=== PATIENT | male | born 2000 | race African-American/Black ===

== ENCOUNTER 2024-05-10 20:10 | Inpatient (IN) | payer MEDICAID ==
[~2024-05-10] VITALS: Ht 188 cm; Wt 78.2 kg
[2024-05-10] MEDS ORDERED: ZOLPIDEM TARTRATE 10 MG TABLET PO PRN (21:00)
[2024-05-10] MEDS ORDERED: HALOPERIDOL 5 MG TABLET PO PRN (21:00)
[2024-05-10 21:35] LABS: GLUCOMETER DEV NAME(LOC) POC.BV; POC SARS-COV2 AG, FIA NEGATIVE (NEGATIVE)
[2024-05-10] MEDS ORDERED: TRAZ-252 PO (22:01)
[2024-05-10] MEDS ORDERED: RISP-32 PO (22:01)
[2024-05-10 22:09] VITALS: BP 125/76; PULSE 98; RESP 18; TEMP 97.6; O2SAT 98
[2024-05-10] MEDS: LORazepam 2 MG TABLET PO PRN (22:28)
[2024-05-10] MEDS ORDERED: MAGNESIUM HYDROXIDE SUSPENSION 30 ML UDCUP PO PRN (22:30)
[2024-05-10] MEDS ORDERED: GuaiFENesin/D-METHORPHAN [SUGAR-FREE] 200-20MG/10 ML SYRUP UDCUP PO PRN (22:30)
[2024-05-10] MEDS ORDERED: ACETAMINOPHEN 325 MG TABLET PO PRN (22:30)
[2024-05-10] MEDS ORDERED: MAG HYDROX/ALUMINUM HYD/SIMETH ES 30 ML SUSPENSION UDCUP PO PRN (22:30)
[2024-05-10] MEDS ORDERED: PROMETHAZINE HCL 25 MG TABLET PO PRN (22:30)
[2024-05-10] MEDS ORDERED: TUBERCULIN, PURIFIED PROTEIN DERIVATIVE 5 TU/0.1 ML SYRINGE ID ONE (22:30)
[2024-05-10] MEDS ORDERED: HydrOXYzine PAMOATE 50 MG CAPSULE PO PRN (22:30)
[2024-05-10] MEDS ORDERED: LOPERAMIDE HCL 2 MG CAPSULE PO PRN (22:30)
[2024-05-11 09:00] VITALS: BP 117/71; PULSE 92; RESP 18; TEMP 97.3; O2SAT 98
[2024-05-11] MEDS ORDERED: CloNIDine HCL 0.1 MG TABLET PO PRN (09:30)
[2024-05-11] MEDS: FLUoxetine HCL 20 MG CAPSULE PO SCH (10:28)
[2024-05-11] MEDS: MULTIVITAMINS WITH MINERALS, THERAPEUTIC TABLET PO SCH (10:28)
[2024-05-11] MEDS: NALTREXONE HCL 50 MG TABLET PO SCH (10:28)
[2024-05-11] MEDS: OMEGA-3/DHA/EPA/FISH OIL 1,000 MG CAPSULE PO SCH (10:28)
[2024-05-11] MEDS: FOLIC ACID 1 MG TABLET PO SCH (10:28)
[2024-05-11] MEDS: THIAMINE 100 MG TABLET PO SCH (10:28)
[2024-05-11 11:01] LABS: EOSINOPHILS % (AUTO) 2.3 % (1.0-6.0); HEMATOCRIT 42.3 % (41-53); HEMOGLOBIN 14.1 g/dL (13.5-17.5); LYMPHOCYTES # (AUTO) 1.4 K/uL (1.0-4.8); LYMPHOCYTES % (AUTO) 24.7 % (22.0-44.0); MEAN CORPUSCULAR HEMOGLOBIN 32.3 pg (26.0-34.0); MEAN CORPUSCULAR HGB CONC 33.4 G/dL (31.0-37.0); MEAN CORPUSCULAR VOLUME 97 fL (80-100); MONOCYTES # (AUTO) 0.5 K/uL (0.1-1.0); MONOCYTES % (AUTO) 9.6 % (2.0-9.0); NEUTROPHILS # (AUTO) 3.5 K/uL (1.8-7.7); NEUTROPHILS % (AUTO) 62.4 % (40.0-70.0); PLATELET COUNT (AUTO) 192 K/uL (150-450); RED BLOOD CELL COUNT(AUTO) 4.37 MIL/uL (4.50-5.90); RED CELL DISTRIBUTION WIDTH 13.3 % (11.5-14.5); WHITE BLOOD COUNT (AUTO) 5.6 K/uL (4.5-11.0)
[2024-05-11 11:59] LABS: HEMOGLOBIN A1C 5.7 % (3.8-5.6)
[2024-05-11 12:07] LABS: ALANINE AMINOTRANSFERASE 23 U/L (12-78); ALBUMIN 3.4 g/dL (3.4-5.0); ALKALINE PHOSPHATASE 87 U/L (46-116); ANION GAP 4 mmol/L (8-16); ASPARTATE AMINOTRANSFERASE 21 U/L (15-37); BILIRUBIN,TOTAL 0.8 mg/dL (0.1-1.0); CALCIUM, TOTAL 9.2 mg/dL (8.8-10.5); CARBON DIOXIDE 30 mmol/L (22-29); CHLORIDE 105 mmol/L (98-107); CHOLESTEROL 142 mg/dL (131-200); CREATININE 0.97 mg/dL (0.60-1.30); GLOMERULAR FILTR. RATE CALC > 60 mL/min (>60); GLUCOSE,RANDOM 89 mg/dL (70-110); HDL CHOLESTEROL 71 mg/dL (40-60); LDL CHOL (CALC.) 65 mg/dL (0-130); POTASSIUM 4.2 mmol/L (3.5-5.1); SODIUM SERUM 139 mmol/L (136-145); THYROID STIMULATING HORMONE 1.14 uIU/mL (0.36-3.74); TOTAL PROTEIN, SERUM 6.9 g/dL (6.4-8.2); TRIGLYCERIDES 31 mg/dL (15-150); UREA NITROGEN, BLOOD 9 mg/dL (7-18)
[2024-05-11] MEDS: MELATONIN 5 MG TABLET PO SCH (20:54)
[2024-05-11 20:57] VITALS: BP 109/58; PULSE 57; TEMP 97.1; O2SAT 100
[2024-05-12 08:35] VITALS: BP 120/64; PULSE 69; RESP 18; TEMP 99.2; O2SAT 99
[2024-05-12] MEDS ORDERED: OMEG-135 PO (14:17)
[2024-05-12] MEDS ORDERED: FLUO-418 PO (14:17)
[2024-05-12] MEDS ORDERED: TRAZ-252 PO (14:17)
[2024-05-12] MEDS ORDERED: MELA5TAB40 PO (14:17)
[2024-05-12] MEDS ORDERED: TraZODone HCL 50 MG TABLET PO SCH (21:00)
[2024-05-13] MEDS ORDERED: FLUoxetine HCL 20 MG CAPSULE PO SCH (09:00)
== END 2024-05-12 17:30 | disposition home or self-care (01) | DRG 753 ==
LOC: B2S 21:02
PROVIDERS: ADMIT Psychiatry & Neurology Psychiatry; ATTEND Psychiatry & Neurology Psychiatry
DX: F31.30 Bipolar disorder, current episode depressed, mild or moderate severity, unspecified (principal); F29 Unspecified psychosis not due to a substance or known physiological condition; F12.90 Cannabis use, unspecified, uncomplicated; G47.00 Insomnia, unspecified; F41.9 Anxiety disorder, unspecified; Z20.822 Contact with and (suspected) exposure to COVID-19; K59.00 Constipation, unspecified; Z79.899 Other long term (current) drug therapy
CPT/HCPCS: 80053; 80061; 83036; 84439; 84443; 85025; 86592; Q9967